=== PATIENT | female | born 1965 | race Caucasian/White ===

== ENCOUNTER → 2021-06-01 11:29 | Outpatient (CLI) | payer OTHER, SELFPAY ==
[2021-06-01 20:11] LABS: Add Manual Diff / Slide Review NO; Basophils Absolute Auto 100 /uL (0-100); Basophils Percent Auto 0.9 % (0-2); Eosinophils Absolute Auto 100 /uL (0-450); Eosinophils Percent Auto 0.8 % (2-4); Hematocrit 45.3 % (36-46); Hemoglobin 15.2 g/dL (12.0-16.0); Lymphocytes Absolute Auto 1900 /uL (1100-4500); Lymphocytes Percent Auto 16.9 % (25-40); Mean Corpuscular HGB Conc 33.6 % (30-36); Mean Corpuscular Hemoglobin 31.3 PG (26-34); Mean Corpuscular Volume 93.3 fL (80-100); Monocytes Absolute Auto 700 /uL (0-900); Monocytes Percent Auto 6.2 % (3-14); Neutrophils Absolute Auto 8500 /uL (1500-7000); Neutrophils Percent Auto 75.2 % (50-75); Platelet Count 233 X10^3/uL (150-400); Red Blood Cell Count 4.85 X10^6/uL (4.0-5.2); White Blood Cell Count 11.3 X10^3/uL (4.5-11.0)
[2021-06-01 20:14] LABS: Alanine Aminotransferase 111 IU/L (<35); Albumin 4.1 g/dL (3.5-5.0); Albumin Globulin Ratio 1.2 (1.0-2.8); Alkaline Phosphatase 105 U/L (38-126); Aspartate Aminotransferase 104 IU/L (14-36); BUN Creatinine Ratio 16.9 (6-22); Bilirubin Total 0.8 mg/dL (0.2-1.3); Blood Urea Nitrogen 11 mg/dL (7-17); Carbon Dioxide 32 mmol/L (22-32); Chloride 102 mmol/L (98-107); Estimated Glomerular Filt Rate > 60.0 mL/min (>60); Globulin 3.4 g/dL (1.7-4.1); Glucose 200 mg/dL (70-100); HEMOLYSIS < 15 (0-50); Potassium 3.8 mmol/L (3.4-5.1); Sodium 139 mmol/L (137-145); Total Protein 7.5 g/dL (6.3-8.2)
[2021-06-01 20:16] LABS: Hemoglobin A1C% w Est Avg Glu 8.1 % (4.0-6.0)
[2021-06-01 20:30] LABS: Progesterone, Total 0.76 ng/mL
[2021-06-01 20:44] LABS: Testosterone 57.8 ng/dL (5.71-77.0)
[2021-06-01 20:46] LABS: TSH w/ Reflex to FT4 1.48 uIU/mL (0.47-4.68)
[2021-06-04 15:50] LABS: Estrogen 234 pg/mL (.)
== END ==
PROVIDERS: PCP Family Medicine; Visit Provider Family Medicine
DX: E07.9 Disorder of thyroid, unspecified (principal); E66.9 Obesity, unspecified; I10 Essential (primary) hypertension
CPT/HCPCS: 80053; 82672; 83036; 83525; 84144; 84403; 84443; 85025

== ENCOUNTER → 2021-06-06 10:05 | Outpatient (CLI) | payer OTHER, SELFPAY ==
[2021-06-08 01:18] LABS: Hepatitis B Core AB w/Reflex Negative (Negative)
[2021-06-08 07:07] LABS: Hepatitis A Ab Total Negative (Negative)
== END ==
PROVIDERS: PCP Family Medicine; Visit Provider Family Medicine
DX: R94.5 Abnormal results of liver function studies (principal)
CPT/HCPCS: 86704; 86708; 87522

== ENCOUNTER → 2021-09-22 09:58 | Outpatient (CLI) | payer OTHER, SELFPAY ==
[2021-09-22 19:22] LABS: Alanine Aminotransferase 108 IU/L (<35); Aspartate Aminotransferase 67 IU/L (14-36); Cholesterol 167 mg/dL (140-199); HDL Cholesterol 42 mg/dL (40-60); LDL Cholesterol Calculated 106 mg/dL (<100); Triglycerides 95 mg/dL (35-150); VLDL Cholesterol Calculated 19 mg/dL (2-30)
[2021-09-22 19:23] LABS: Hemoglobin A1C% w Est Avg Glu 8.6 % (4.0-6.0)
[2021-09-22 20:06] LABS: Vitamin B12 621 pg/mL (239-931)
[2021-09-25 10:37] LABS: Hepatitis B Core AB w/Reflex Negative (Negative)
== END ==
PROVIDERS: PCP Family Medicine; Visit Provider Family Medicine
DX: R94.5 Abnormal results of liver function studies (principal); E03.9 Hypothyroidism, unspecified; E07.9 Disorder of thyroid, unspecified; E66.01 Morbid (severe) obesity due to excess calories; I15.0 Renovascular hypertension; Z68.43 Body mass index [BMI] 50.0-59.9, adult; L71.9 Rosacea, unspecified
CPT/HCPCS: 80061; 82607; 83036; 84450; 84460; 86704

== ENCOUNTER → 2021-12-22 08:33 | Outpatient (CLI) | payer OTHER, SELFPAY ==
[2021-12-22 18:41] LABS: Add Manual Diff / Slide Review NO; Basophils Absolute Auto 100 /uL (0-100); Basophils Percent Auto 0.6 % (0-2); Eosinophils Absolute Auto 200 /uL (0-450); Eosinophils Percent Auto 1.4 % (2-4); Hematocrit 42.3 % (36-46); Hemoglobin 14.2 g/dL (12.0-16.0); Hemoglobin A1C% w Est Avg Glu 6.3 % (4.0-6.0); Lymphocytes Absolute Auto 2200 /uL (1100-4500); Lymphocytes Percent Auto 19.1 % (25-40); Mean Corpuscular HGB Conc 33.6 % (30-36); Mean Corpuscular Hemoglobin 30.4 PG (26-34); Mean Corpuscular Volume 90.5 fL (80-100); Monocytes Absolute Auto 700 /uL (0-900); Monocytes Percent Auto 6.1 % (3-14); Neutrophils Absolute Auto 8200 /uL (1500-7000); Neutrophils Percent Auto 72.8 % (50-75); Platelet Count 250 X10^3/uL (150-400); Red Blood Cell Count 4.67 X10^6/uL (4.0-5.2); Red Cell Distribution Width 13.4 % (11.6-14.8); White Blood Cell Count 11.3 X10^3/uL (4.5-11.0)
[2021-12-22 18:51] LABS: Alanine Aminotransferase 65 IU/L (<35); Albumin 3.8 g/dL (3.5-5.0); Albumin Globulin Ratio 1.2 (1.0-2.8); Alkaline Phosphatase 63 U/L (38-126); Aspartate Aminotransferase 41 IU/L (14-36); BUN Creatinine Ratio 16.9 (6-22); Bilirubin Total 0.6 mg/dL (0.2-1.3); Blood Urea Nitrogen 13 mg/dL (7-17); Carbon Dioxide 28 mmol/L (22-32); Chloride 106 mmol/L (98-107); Estimated Glomerular Filt Rate > 60 mL/min (>60); Globulin 3.2 g/dL (1.7-4.1); Glucose 114 mg/dL (70-100); HEMOLYSIS < 15 (0-50); Potassium 3.8 mmol/L (3.4-5.1); Sodium 140 mmol/L (137-145)
== END ==
PROVIDERS: PCP Physician Assistant; Visit Provider Physician Assistant
DX: E03.9 Hypothyroidism, unspecified (principal); E11.00 Type 2 diabetes mellitus with hyperosmolarity without nonketotic hyperglycemic-hyperosmolar coma (NKHHC); E66.01 Morbid (severe) obesity due to excess calories; R94.5 Abnormal results of liver function studies; Z68.43 Body mass index [BMI] 50.0-59.9, adult
CPT/HCPCS: 80053; 83036; 85025

== ENCOUNTER → 2022-05-02 09:40 | Outpatient (CLI) | payer OTHER, SELFPAY ==
[2022-05-02 20:00] LABS: Hemoglobin A1C% w Est Avg Glu 5.9 % (4.0-6.0)
[2022-05-02 20:06] LABS: Alanine Aminotransferase 43 IU/L (<35); Albumin Globulin Ratio 1.2 (1.0-2.8); Alkaline Phosphatase 73 U/L (38-126); Aspartate Aminotransferase 31 IU/L (14-36); BUN Creatinine Ratio 14.7 (6-22); Bilirubin Total 0.7 mg/dL (0.2-1.3); Blood Urea Nitrogen 10 mg/dL (7-17); Calcium 8.7 mg/dL (8.4-10.2); Carbon Dioxide 26 mmol/L (22-32); Chloride 105 mmol/L (98-107); Estimated Glomerular Filt Rate > 60 mL/min (>60); Globulin 3.4 g/dL (1.7-4.1); Glucose 103 mg/dL (70-100); HEMOLYSIS < 15 (0-50); Sodium 140 mmol/L (137-145); Total Protein 7.4 g/dL (6.3-8.2)
[2022-05-02 20:28] LABS: TSH w/ Reflex to FT4 1.31 uIU/mL (0.47-4.68)
== END ==
PROVIDERS: PCP Physician Assistant; Visit Provider Physician Assistant
DX: E11.00 Type 2 diabetes mellitus with hyperosmolarity without nonketotic hyperglycemic-hyperosmolar coma (NKHHC) (principal); I15.0 Renovascular hypertension; R94.5 Abnormal results of liver function studies; E03.9 Hypothyroidism, unspecified
CPT/HCPCS: 80053; 83036; 84443

== ENCOUNTER → 2022-09-26 06:52 | Outpatient (CLI) | payer OTHER, SELFPAY ==
[2022-09-26 22:01] LABS: COVID19 - ORCAS (NP or Nasal) Negative (Negative)
== END ==
PROVIDERS: PCP Physician Assistant; Visit Provider Physician Assistant
DX: Z20.822 Contact with and (suspected) exposure to COVID-19 (principal); Z01.812 Encounter for preprocedural laboratory examination
CPT/HCPCS: U0003

== ENCOUNTER 2022-09-27 10:43 | Day surgery (SDC) | payer OTHER, SELFPAY ==
[2022-09-27] VITALS (7 sets, daily range): BP systolic 154–230; BP diastolic 77–116; PULSE 81–91; RESP 12–20; TEMP 36.3–36.6; O2SAT 95–98; BMI 39.9
--- NOTE | 2022-09-27 | PATH_ITS ---
[facility] Accession Number: [id number] No. of containers..02 Tissue . 01 Material submitted: . PART A: colon - ASCENDING POLYP PART B: sigmoid colon - SIGMOID POLYP . 01 Diagnosis: A. Ascending Colon, Polyp, Biopsy: Tubular adenoma. . B. Sigmoid Colon, Polyp, Biopsy: Hyperplastic polyp. Additional levels were examined. [facility] 10/02/2022 1117 Local . 01 Electronically signed: . Rajni Byrne MD, Pathologist NPI- [id number] . 01 Gross description: . Part A: ASCENDING POLYP: Received in formalin is 1 fragment(s) of cobb, soft tissue measuring 1.1 x 0.4 x 0.4 cm submitted entirely in 1 cassette(s) Part B: SIGMOID POLYP: Received in formalin is 1 fragment(s) of cobb, soft tissue measuring 1.4 x 0.4 x 0.3 cm submitted entirely in 1 cassette(s) /NICOLE 09/28/2022 2346 Local . 01 Pathologist provided ICD-10: D12.2 . 01 CPT . 131255, [id number] Specimen Comment: A courtesy copy of this report has been sent to [phone] Performed at: 01 [facility] [address] [place] [address] Suite [facility], [place], [place] [id number] MD Jay Jay Ghosh MD Phone: [phone]
[2022-09-27] MEDS: lisinopriL 20 MG TABLET PO (11:49)
[2022-09-27] MEDS: LACTATED RINGERS 1,000 ML 42 ML IV (12:05)
--- NOTE | 2022-09-27 12:21 | PM.HP.1 ---
History of Present Illness History of Present Illness Date Patient Seen: 09/27/22 Time Patient Seen: 12:21 Chief complaint: SCREENING COLONOSCOPY Narrative: Fátima is a 57-year-old woman who is here for colonoscopy. She is never had 1 before. She had a recent positive Cologuard test. No family history of colon cancer. Patient History Medical History (Updated 06/01/22 @ 14:25 by Dara Roy PA-C) Abnormal EKG Abnormal LFTs Chronic back pain (~2001) Disease of thyroid gland Hypothyroidism (~2007) Precordial pain Rosacea (~2009) SOB (shortness of breath) Surgical History (Updated 06/15/21 @ 18:18 by Sarika Pascual) Anesthesia History of tonsillectomy (~1969) Family & Social History Family History (Updated 06/15/21 @ 18:23 by Sarika Pascual) Father Hypertension Parkinson's disease Brother Hypertension History of heart disease Grandmother Diabetes mellitus Grandfather History of heart disease Grandmother Parkinson's disease Social History: household members spouse Tobacco & Substance use: Smoking Status Former smoker alcohol intake current alcohol intake frequency a few times a week Substance Use Type marijuana Meds Home Medications and Allergies Home Medications Medication Instructions Recorded Confirmed Type lisinopril 20 mg tablet 20 mg PO BID #60 tabs 07/07/21 09/27/22 Rx blood-glucose meter (CareTouch #1 ea 10/03/21 06/01/22 Rx Glucose Monitoring System kit) blood sugar diagnostic (Blood #100 ea 11/22/21 06/01/22 Rx Glucose Test strips) semaglutide 2 mg/dose (8 mg/3 mL) 2 mg (0.75 mL) SUBCUT QWEEK #3 mL 06/01/22 09/27/22 Rx subcutaneous pen injector (Ozempic) levothyroxine 100 mcg tablet 100 mcg PO DAILY #90 tabs 06/13/22 09/27/22 Rx sodium,potassium,mag sulfates 17.5 See Rx Instructions PO .COMPLEX 09/13/22 09/27/22 Rx gram-3.13 gram-1.6 gram oral soln #354 mL (Suprep Bowel Prep Kit) carvedilol 12.5 mg tablet 12.5 mg PO BID 09/27/22 09/27/22 History metformin 500 mg tablet 500 mg PO BID 09/27/22 09/27/22 History Allergies Allergy/AdvReac Type Severity Reaction Status Date / Time aspirin Allergy Unknown Hives Verified 09/27/22 11:27 iodine Allergy Unknown Hives Verified 09/27/22 11:27 shellfish derived Allergy Unknown Hives Verified 09/27/22 11:27 Exam Vital Signs (past 8 hours): - 09/27/22 11:53 09/27/22 11:57 09/27/22 12:08 Temperature 97.3 F L Pulse Rate 91 H Respiratory Rate 12 Blood Pressure 230/116 H 221/96 H 191/99 H Pulse Oximetry 97 Oxygen Delivery Method Room Air Oxygen Delivery Method Room Air Const General: No acute distress Assessment & Plan Assessment and plan (1) Positive colorectal cancer screening using Cologuard test: Status: Acute Plan Reviewed the risks and benefits of colonoscopy and she would like to proceed. Time Spent With Patient Critical Care time: I spent a total of [] minutes of critical care time on this patient's care today; this time is exclusive of procedural time.
--- NOTE | 2022-09-27 12:50 | PM.OP.COLON ---
Operative Date/Time/Diagnoses Date of procedure: 09/27/22 Time of procedure: 12:50 Pre-op diagnosis: Positive Cologuard test Post-op diagnosis: same Procedure & Clinicians Study performed: Colonoscopy Same procedure as scheduled: Yes Surgeon: Johnathan Rainey Procedure Notes Procedure in detail: Surgeon: Johnathan Rainey MD Anesthesia: Dr. Matthews Procedure: The patient was brought to the endoscopy suite, placed in left lateral decubitus position. The patient was connected to monitoring devices. A time-out was performed. Sedation was administered. Once the patient was adequately sedated, a digital rectal exam was performed and was normal. The scope was then inserted and advanced to the cecum where the appendiceal orifice was identified and photographed. The scope was then slowly withdrawn over greater than 6 minutes. The mucosa was thoroughly inspected. There was a 7 mm polyp in the ascending colon removed with a cold snare. There was a 5 mm polyp in the sigmoid colon removed with a cold snare. The scope was retroflexed in the rectum. No other abnormalities were seen. The scope was straightened and removed. The patient was awakened and brought to recovery. Scope withdrawal time: 8 minutes Sedation time: 12 minutes EBL: 2 mL Findings: 7 mm polyp in the ascending colon and a 5 mm polyp in the sigmoid colon Post-procedure Disposition: PACU
== END 2022-09-27 13:22 | disposition home or self-care (01) ==
PROVIDERS: PCP Physician Assistant; Referring Provider Surgery; Visit Provider Surgery
PROC: 0DJD8ZZ Inspection of Lower Intestinal Tract, Via Natural or Artificial Opening Endoscopic (ICD-10-PCS; CPT 45378; principal; 2022-09-27 11:15)
DX: Z12.11 Encounter for screening for malignant neoplasm of colon (principal); R19.5 Other fecal abnormalities; D12.0 Benign neoplasm of cecum
CPT/HCPCS: 45385; J2250; J2704; J3010

== ENCOUNTER → 2023-06-26 08:59 | Outpatient (CLI) | payer OTHER, SELFPAY ==
[2023-06-26 19:39] LABS: Add Manual Diff / Slide Review NO; Basophils Absolute Auto 100 /uL (0-100); Basophils Percent Auto 0.7 % (0-2); Eosinophils Absolute Auto 100 /uL (0-450); Eosinophils Percent Auto 1.5 % (2-4); Hematocrit 44.9 % (36-46); Hemoglobin 15.2 g/dL (12.0-16.0); Lymphocytes Absolute Auto 2000 /uL (1100-4500); Lymphocytes Percent Auto 20.2 % (25-40); Mean Corpuscular HGB Conc 33.9 % (30-36); Mean Corpuscular Hemoglobin 30.7 PG (26-34); Mean Corpuscular Volume 90.5 fL (80-100); Monocytes Absolute Auto 600 /uL (0-900); Monocytes Percent Auto 6.5 % (3-14); Neutrophils Absolute Auto 6800 /uL (1500-7000); Neutrophils Percent Auto 71.1 % (50-75); Platelet Count 347 X10^3/uL (150-400); Red Blood Cell Count 4.96 X10^6/uL (4.0-5.2); Red Cell Distribution Width 13.3 % (11.6-14.8); White Blood Cell Count 9.6 X10^3/uL (4.5-11.0)
[2023-06-26 19:49] LABS: Hemoglobin A1C% w Est Avg Glu 5.5 % (4.0-6.0)
[2023-06-26 19:55] LABS: Alanine Aminotransferase 46 IU/L (<35); Albumin Globulin Ratio 1.1 (1.0-2.8); Alkaline Phosphatase 60 U/L (38-126); Aspartate Aminotransferase 39 IU/L (14-36); BUN Creatinine Ratio 15.2 (6-22); Bilirubin Total 0.7 mg/dL (0.2-1.3); Blood Urea Nitrogen 12 mg/dL (7-17); Calcium 9.3 mg/dL (8.4-10.2); Carbon Dioxide 32 mmol/L (22-32); Chloride 100 mmol/L (98-107); Cholesterol 197 mg/dL (140-199); Estimated Glomerular Filt Rate > 60 mL/min (>60); Globulin 3.5 g/dL (1.7-4.1); Glucose 119 mg/dL (70-100); HDL Cholesterol 48 mg/dL (40-60); HEMOLYSIS 16 (0-50); LDL Cholesterol Calculated 127 mg/dL (<100); Sodium 140 mmol/L (137-145); Total Protein 7.5 g/dL (6.3-8.2); Triglycerides 108 mg/dL (35-150)
[2023-06-26 20:10] LABS: Free T3, Triiodothyronine Free 4.12 pg/mL (2.77-5.27); Free T4, Direct Thyroxine 1.58 ng/dL (0.78-2.19)
[2023-06-26 20:24] LABS: Thyroid Stimulating Hormone 1.51 uIU/mL (0.47-4.68)
== END ==
PROVIDERS: PCP Family Medicine; Visit Provider Family Medicine
DX: E78.5 Hyperlipidemia, unspecified (principal); E11.00 Type 2 diabetes mellitus with hyperosmolarity without nonketotic hyperglycemic-hyperosmolar coma (NKHHC); E03.9 Hypothyroidism, unspecified; R94.5 Abnormal results of liver function studies; E07.9 Disorder of thyroid, unspecified; I15.0 Renovascular hypertension
CPT/HCPCS: 80053; 80061; 83036; 84439; 84443; 84481; 85025

== ENCOUNTER → 2023-07-05 12:02 | Outpatient (CLI) | payer OTHER, SELFPAY ==
[2023-07-08 17:06] LABS: Creatinine Urine Random 123.9 mg/dL
[2023-07-08 17:16] LABS: Microalbumi Creatinin Ratio Ur 21.7 ug/mg CR (<30); Microalbumin Urine Random 2.7 mg/dL (0-1.6)
== END ==
PROVIDERS: PCP Family Medicine; Visit Provider Family Medicine
DX: E78.5 Hyperlipidemia, unspecified (principal); E11.00 Type 2 diabetes mellitus with hyperosmolarity without nonketotic hyperglycemic-hyperosmolar coma (NKHHC); E03.9 Hypothyroidism, unspecified; R94.5 Abnormal results of liver function studies; E07.9 Disorder of thyroid, unspecified; I15.0 Renovascular hypertension
CPT/HCPCS: 82043; 82570

== ENCOUNTER → 2023-07-17 13:20 | Outpatient (CLI) | payer OTHER, SELFPAY ==
[2023-07-17 19:50] LABS: C-Reactive Protein Quant 1.3 mg/dL (<1.0); Uric Acid 6.7 mg/dL (2.5-6.2)
[2023-07-17 19:51] LABS: Rheumatoid Factor < 8.6 IU/mL (<12.0)
[2023-07-17 20:13] LABS: Erythrocyte Sedimentation Rate 11 MM/HR (0-20)
[2023-07-17 20:14] LABS: HEMOLYSIS < 15 (0-50); Iron 87 ug/dL (37-170)
[2023-07-17 20:25] LABS: Percent Iron Saturation 27 % (15-50); Total Iron Binding Capacity 325 ug/dL (265-497); Transferrin 257 mg/dL (206-381)
[2023-07-17 20:30] LABS: Ferritin 55 ng/mL (11-264)
[2023-07-20 19:36] LABS: Free Kappa Lt Chains, Serum 37.1 mg/L (3.3-19.4)
[2023-07-23 14:36] LABS: Albumin 3.9 g/dL (2.9-4.4); Alpha-1-Globulin 0.2 g/dL (0.0-0.4); Alpha-2-Globulin 0.7 g/dL (0.4-1.0); Gamma Globulin 1.5 g/dL (0.4-1.8); Globulin Total 3.6 g/dL (2.2-3.9); Protein, Total 7.5 g/dL (6.0-8.5)
[2023-07-23 22:07] LABS: ANA Screen, IFA Negative (.)
== END ==
PROVIDERS: PCP Family Medicine; Visit Provider Family Medicine
DX: M79.641 Pain in right hand (principal); M79.642 Pain in left hand; R94.5 Abnormal results of liver function studies; E78.5 Hyperlipidemia, unspecified; G62.9 Polyneuropathy, unspecified
CPT/HCPCS: 82728; 83540; 83550; 83883; 84155; 84165; 84550; 85651; 86038; 86140; 86430

== ENCOUNTER → 2023-12-30 08:19 | Outpatient (CLI) | payer OTHER, SELFPAY ==
[2023-12-30 19:56] LABS: Hemoglobin A1C% w Est Avg Glu 6.7 % (4.0-6.0)
[2023-12-30 20:01] LABS: Alanine Aminotransferase 33 IU/L (<35); Albumin 4.1 g/dL (3.5-5.0); Albumin Globulin Ratio 1.5 (1.0-2.8); Alkaline Phosphatase 70 U/L (38-126); Aspartate Aminotransferase 29 IU/L (14-36); BUN Creatinine Ratio 22.4 (6-22); Bilirubin Total 0.7 mg/dL (0.2-1.3); Blood Urea Nitrogen 19 mg/dL (7-17); Calcium 9.2 mg/dL (8.4-10.2); Carbon Dioxide 33 mmol/L (22-32); Chloride 103 mmol/L (98-107); Cholesterol 178 mg/dL (140-199); Estimated Glomerular Filt Rate > 60 mL/min (>60); Globulin 2.7 g/dL (1.7-4.1); Glucose 149 mg/dL (70-100); HDL Cholesterol 48 mg/dL (40-60); HEMOLYSIS < 15 (0-50); LDL Cholesterol Calculated 104 mg/dL (<100); Potassium 3.4 mmol/L (3.4-5.1); Sodium 138 mmol/L (137-145); Total Protein 6.8 g/dL (6.3-8.2); Triglycerides 131 mg/dL (35-150)
[2023-12-30 20:05] LABS: Add Manual Diff / Slide Review NO; Basophils Absolute Auto 100 /uL (0-100); Basophils Percent Auto 0.9 % (0-2); Eosinophils Absolute Auto 100 /uL (0-450); Eosinophils Percent Auto 1.4 % (2-4); Hematocrit 41.4 % (36-46); Lymphocytes Absolute Auto 2600 /uL (1100-4500); Lymphocytes Percent Auto 28.5 % (25-40); Mean Corpuscular HGB Conc 33.8 % (30-36); Mean Corpuscular Hemoglobin 30.9 PG (26-34); Mean Corpuscular Volume 91.4 fL (80-100); Monocytes Absolute Auto 900 /uL (0-900); Monocytes Percent Auto 9.6 % (3-14); Neutrophils Absolute Auto 5300 /uL (1500-7000); Neutrophils Percent Auto 59.6 % (50-75); Platelet Count 260 X10^3/uL (150-400); Red Blood Cell Count 4.53 X10^6/uL (4.0-5.2); Red Cell Distribution Width 13.4 % (11.6-14.8)
== END ==
PROVIDERS: PCP Family Medicine; Visit Provider Family Medicine
DX: E78.5 Hyperlipidemia, unspecified (principal); E11.00 Type 2 diabetes mellitus with hyperosmolarity without nonketotic hyperglycemic-hyperosmolar coma (NKHHC); I15.0 Renovascular hypertension
CPT/HCPCS: 80053; 80061; 83036; 85025

== ENCOUNTER → 2024-01-14 09:23 | Outpatient (CLI) | payer OTHER, SELFPAY | PROVIDERS: PCP Family Medicine; Visit Provider Family Medicine | DX: R30.0 Dysuria (principal) | CPT/HCPCS: 87086 ==

== ENCOUNTER → 2024-01-30 10:55 | Outpatient (CLI) | payer OTHER, SELFPAY ==
[2024-01-30 22:20] LABS: Follicle Stimulating Hormone 18.6 mIU/mL
== END ==
PROVIDERS: PCP Family Medicine; Visit Provider Family Medicine
DX: N95.0 Postmenopausal bleeding (principal)
CPT/HCPCS: 83001

== ENCOUNTER → 2024-02-05 11:51 | Outpatient (CLI) | payer OTHER, SELFPAY | PROVIDERS: PCP Family Medicine; Visit Provider Nurse Practitioner Adult Health | DX: N89.8 Other specified noninflammatory disorders of vagina (principal) | CPT/HCPCS: 87798; 87801 ==

== ENCOUNTER → 2024-03-04 11:07 | Outpatient (CLI) | payer OTHER, SELFPAY ==
--- NOTE | 2024-03-04 11:08 | DI.US.S_ITS ---
PROCEDURE: US PELVIC COMPLETE INDICATIONS: persistent uterine spotting TECHNIQUE: Real-time scanning was performed of the pelvic organs, with image documentation. Additional endovaginal scanning was necessary due to incomplete visualization of the adnexal and endometrial structures by transabdominal scanning. COMPARISON: None. FINDINGS: Uterus: Uterus is anteverted and mildly enlarged in size at 10.2 x 5.5 x 7.1 cm. The myometrium is homogeneous. There is a small echogenic rounded mass in the left anterior fundus measuring 1.6 cm. The endometrium demonstrates an irregular and indistinct margin, increased heterogeneity with several tiny cystic spaces. Color Doppler imaging demonstrates mild intrinsic vascularity. The endometrium is thickened measuring 14 mm in combined thickness. The cervix contains several nabothian cysts of varying sizes, some with low level internal echoes. Ovaries: The right ovary measures 1.7 x 1.5 x 2.1 cm, with a calculated ovarian volume of 2.7 cc. The left ovary was not seen. Single 1.3 cm follicle in the right ovary. No adnexal masses are seen. Other: No pathologic free abdominal or pelvic fluid. IMPRESSION: Thickened, heterogeneous, and irregular appearing endometrium. This is abnormal if the patient is postmenopausal. Tissue acquisition is recommended. Nonvisualization of the left ovary. Small myometrial uterine fibroid. We strive to produce accurate, complete, and clear reports of imaging services. To assist us in improving patient care, this report was composed using standard report templates and voice recognition software. Therefore, it may contain abnormal punctuation, insertions and/or omissions. Occasional wrong-word or sound-alike substitutions may occur. Though we review the report and make efforts to correct it, we do recommend that the report be read carefully in proper context to recognize any text inaccuracies. Dictated by: Ene Silva M.D. on 03/04/2024 at 13:10 Approved by: Ene Silva M.D. on 03/04/2024 at 13:17
== END ==
PROVIDERS: PCP Family Medicine; Referring Provider Nurse Practitioner Adult Health; Visit Provider Nurse Practitioner Adult Health
DX: N95.0 Postmenopausal bleeding (principal); D25.9 Leiomyoma of uterus, unspecified; R93.89 Abnormal findings on diagnostic imaging of other specified body structures
CPT/HCPCS: 76856

== ENCOUNTER → 2024-06-15 09:39 | Outpatient (CLI) | payer OTHER, SELFPAY ==
[2024-06-15 22:05] LABS: Microalbumin Urine Random 1.1 mg/dL (0-1.6)
== END ==
PROVIDERS: PCP Family Medicine; Referring Provider Family Medicine; Visit Provider Family Medicine
DX: E11.9 Type 2 diabetes mellitus without complications (principal)
CPT/HCPCS: 82043; 82570

== ENCOUNTER → 2025-04-01 10:25 | Outpatient (CLI) | payer OTHER, SELFPAY ==
[2025-04-01 19:30] LABS: Add Manual Diff / Slide Review NO; Hematocrit 42.4 % (36-46); Hemoglobin 14.7 g/dL (12.0-16.0); Lymphocytes Absolute Auto 1600 /uL (1100-4500); Mean Corpuscular HGB Conc 34.6 % (30-36); Mean Corpuscular Hemoglobin 32.1 PG (26-34); Mean Corpuscular Volume 92.8 fL (80-100); Platelet Count 251 X10^3/uL (150-400)
[2025-04-01 20:47] LABS: HEMOLYSIS < 15 (0-50); Iron 111 ug/dL (37-170)
[2025-04-01 20:50] LABS: Alanine Aminotransferase 47 IU/L (<35); Albumin 3.9 g/dL (3.5-5.0); Albumin Globulin Ratio 1.2 (1.0-2.8); Alkaline Phosphatase 102 U/L (38-126); Blood Urea Nitrogen 17 mg/dL (7-17); Calcium 9.2 mg/dL (8.4-10.2); Carbon Dioxide 31 mmol/L (22-32); Chloride 98 mmol/L (98-107); Cholesterol 168 mg/dL (140-199); Estimated Glomerular Filt Rate > 60 mL/min (>60); Gamma Glutamyl Transpeptidase 24 U/L (12-43); Globulin 3.3 g/dL (1.7-4.1); Glucose 223 mg/dL (70-99); HDL Cholesterol 46 mg/dL (40-60); HEMOLYSIS < 15 (0-50); Potassium 4.0 mmol/L (3.4-5.1); Sodium 137 mmol/L (137-145); Total Protein 7.2 g/dL (6.3-8.2); Triglycerides 140 mg/dL (35-150)
[2025-04-01 21:01] LABS: Percent Iron Saturation 33 % (15-50); Total Iron Binding Capacity 334 ug/dL (265-497)
[2025-04-01 21:24] LABS: Thyroid Stimulating Hormone 1.55 uIU/mL (0.47-4.68)
[2025-04-01 21:25] LABS: Ferritin 55 ng/mL (11-264)
[2025-04-01 23:18] LABS: Transferrin 265 mg/dL (206-381)
== END ==
PROVIDERS: PCP Family Medicine; Visit Provider Family Medicine
DX: R94.5 Abnormal results of liver function studies (principal); I10 Essential (primary) hypertension; E03.9 Hypothyroidism, unspecified; E11.9 Type 2 diabetes mellitus without complications
CPT/HCPCS: 80053; 80061; 82728; 82977; 83540; 83550; 84443; 85025

== ENCOUNTER → 2025-05-20 13:47 | Outpatient (CLI) | payer OTHER, SELFPAY ==
--- NOTE | 2025-05-20 13:48 | DI.MG.S_ITS ---
MM screening mammo BI: 05/20/2025. BI-RADS: 1 CLINICAL: 59-year old female for bilateral screening mammogram. Tyrer-Cuzick lifetime risk of 17.1%. No personal or first-degree family history of breast cancer. Current reported family history of breast cancer: paternal aunt. Personal history of ovarian cancer. The patient reports testing negative for BRCA gene mutation. PRIOR EXAMS: None. This is a baseline mammogram. MAMMOGRAPHY TECHNIQUE: 2D and 3D (tomosynthesis) digital mammographic views obtained, with additional images as needed for full coverage. Current study was also evaluated with a Computer Aided Detection (CAD) system. DENSITY B. There are scattered areas of fibroglandular density. MAMMOGRAPHY FINDINGS Bilateral: No suspicious mass, asymmetry, microcalcification, or other abnormality seen. IMPRESSION: * No evidence of malignancy. RECOMMENDATIONS Bilateral * Annual screening mammography. OVERALL ASSESSMENT CATEGORY BI-RADS-1: Negative. [employer] recommends annual screening mammography beginning at age 40 for women with average risk of breast cancer. ELECTRONICALLY SIGNED: Justine Thornton M.D. on 05/22/2025 at 12:01:58 AM PT Interpreting Station ID: [id number]
== END ==
LOC: MAMMO 13:48
PROVIDERS: PCP Family Medicine; Referring Provider Family Medicine; Visit Provider Family Medicine
DX: Z12.31 Encounter for screening mammogram for malignant neoplasm of breast (principal); Z80.3 Family history of malignant neoplasm of breast; Z80.41 Family history of malignant neoplasm of ovary
CPT/HCPCS: 77063; 77067

== ENCOUNTER → 2025-08-23 13:53 | Outpatient (CLI) | payer OTHER, SELFPAY ==
[2025-08-23 19:06] LABS: Hemoglobin A1C% w Est Avg Glu 8.2 % (4.0-6.0)
[2025-08-23 19:07] LABS: Alanine Aminotransferase 71 IU/L (<35); Albumin 4.1 g/dL (3.5-5.0); Albumin Globulin Ratio 1.3 (1.0-2.8); Alkaline Phosphatase 100 U/L (38-126); Globulin 3.2 g/dL (1.7-4.1); HEMOLYSIS 16 (0-50); Total Protein 7.3 g/dL (6.3-8.2)
[2025-08-23 20:36] LABS: Microalbumi Creatinin Ratio Ur 5.0 ug/mg CR (<30)
== END ==
PROVIDERS: PCP Family Medicine; Referring Provider Family Medicine; Visit Provider Family Medicine
DX: R94.5 Abnormal results of liver function studies (principal); I15.0 Renovascular hypertension; E11.00 Type 2 diabetes mellitus with hyperosmolarity without nonketotic hyperglycemic-hyperosmolar coma (NKHHC)
CPT/HCPCS: 80076; 82043; 82570; 83036